=== PATIENT | male | born 1960 | race Caucasian/White ===

== ENCOUNTER 2018-04-14 08:05 | Inpatient (IN) | payer MEDICAID, OTHER ==
[~2018-04-14] VITALS: Ht 170.2 cm; Wt 72.7 kg
[~2018-04-14 08:05] MED LIST: CYCL-1 PO
[2018-04-14] MEDS ORDERED: amLODIPine 5mg tablet PO ONE (08:40)
[2018-04-14 08:47] LABS: BASOPHILS % (AUTO) 0.3 % (0-1); EOSINOPHILS # (AUTO) 0.3 X10'3 (0-0.9); EOSINOPHILS % (AUTO) 2.4 % (0-6); HEMATOCRIT 40.9 % (42.0-52.0); HEMOGLOBIN 13.3 g/dl (14.0-17.9); LYMPHOCYTES # (AUTO) 2.3 X10'3 (1.1-4.8); LYMPHOCYTES % (AUTO) 16.7 % (21-51); MEAN CORPUSCULAR HEMOGLOBIN 28.4 PG (27.0-31.0); MEAN CORPUSCULAR HGB CONC 32.5 % (33.0-36.5); MEAN CORPUSCULAR VOLUME 87.2 FL (78-98); MEAN PLATELET VOLUME 8.8 FL (7.4-10.4); MONOCYTES # (AUTO) 0.8 X10'3 (0-0.9); MONOCYTES % (AUTO) 5.6 % (2-12); NEUTROPHILS # (AUTO) 10.4 X10'3 (1.8-7.7); PLATELET COUNT 269 X10'3 (140-440); RED BLOOD COUNT 4.69 X10'6 (4.70-6.10); RED CELL DISTRIBUTION WIDTH 14.9 % (11.5-14.5); WHITE BLOOD COUNT 13.9 X10'3 (4.5-11.0)
[2018-04-14 08:57] LABS: INR 1.2 INR; PARTIAL THROMBOPLASTIN TIME 28 SECONDS (22-32); PROTHROMBIN TIME 12.5 SECONDS (9.0-12.0)
[2018-04-14 09:03] LABS: ALANINE AMINOTRANSFERASE 43 U/L (12-78); ALBUMIN 3.5 G/DL (3.4-5.0); ALKALINE PHOSPHATASE 232 IU/L (46-116); ANION GAP 11 (8-16); ASPARTATE AMINO TRANSFERASE 26 U/L (10-37); BILIRUBIN,TOTAL 1.3 MG/DL (0.1-1.0); BLOOD UREA NITROGEN 33 MG/DL (7-18); BUN/CREATININE RATIO 20.5 (5.4-32.0); CHLORIDE 103 MMOL/L (99-107); CREATININE 1.61 MG/DL (0.60-1.10); GLUCOSE 117 MG/DL (70-104); POTASSIUM 3.9 MMOL/L (3.5-5.1); SODIUM 139 MMOL/L (135-145); TOTAL CARBON DIOXIDE 25.3 MMOL/L (24-32); TOTAL PROTEIN 7.1 G/DL (6.4-8.2); eGFR 45 ML/MIN
[2018-04-14] MEDS ORDERED: AMLO10TA4 PO (10:14)
[2018-04-14] MEDS ORDERED: levoFLOXACIN 750MG TABLET PO ONE (10:20)
[2018-04-14] MEDS ORDERED: furosemide 10 MG/1 ML 10ml inj IV ONE (10:20)
[2018-04-14 10:41] LABS: CLARITY,URINE CLEAR (Clear); COLOR,URINE YELLOW (Yellow); GLUCOSE, URINE NEGATIVE (Neg); KETONES,URINE NEGATIVE (Neg); LEUKOCYTE ESTERASE ,URINE NEGATIVE (Neg); NITRITES, URINE NEGATIVE (Neg); OCCULT BLOOD,URINE TRACE-INTACT (Neg); PH,URINE 5.5 (4.8-8.0); PROTEIN,URINE 100 mg/dl (Neg); UROBILINOGEN,URINE 0.2 E.U/dL (0.2-1.0)
[2018-04-14 10:42] LABS: UA COLLECTION TYPE URINAL
[2018-04-14 10:52] LABS: URINE AMPHETAMINE SCREEN POSITIVE (Neg); URINE BARBITUATE SCREEN NEGATIVE (Neg); URINE BENZODIAZEPINES SCREEN NEGATIVE (Neg); URINE CANNABINOID SCREEN NEGATIVE (Neg); URINE COCAINE SCREEN NEGATIVE (Neg); URINE METHADONE SCREEN NEGATIVE (Neg); URINE OPIATE SCREEN NEGATIVE (Neg); URINE PHENCYCLIDINE SCREEN NEGATIVE (Neg)
[2018-04-14] MEDS ORDERED: ondansetron/PF 4mg/2ml inj IV PRN (10:55)
[2018-04-14] MEDS ORDERED: acetaminophen 325mg tablet PO PRN (10:55)
[2018-04-14] MEDS ORDERED: azithromycin/NS 500mg/250ml 250 ML IV SCH (10:55)
[2018-04-14] MEDS ORDERED: potassium Cl 20 mEq SR tablet PO PRN ×2 (10:55)
[2018-04-14] MEDS ORDERED: potassium Cl 40MEQ/NS 500ml 500 ML IV PRN ×2 (10:55)
[2018-04-14] MEDS ORDERED: magnesium hydroxide 30ml (MOM) UD suspension PO PRN (10:55)
[2018-04-14] MEDS ORDERED: magnesium 4gm in 100ml NS 100 ML IV PRN (10:55)
[2018-04-14] MEDS ORDERED: magnesium Cl slow-release 64mg tablet PO PRN (10:55)
[2018-04-14] MEDS ORDERED: CefTRIAXone/D5W-Rocephin 1gm 50 ML IV SCH (10:55)
[2018-04-14] MEDS ORDERED: mag hydrox/Alum hydrox/simeth 30ml oral suspension PO PRN (10:55)
[2018-04-14 11:02] LABS: BACTERIA,URINE FEW /HPF (Neg); FINE GRANULAR CAST 0-3 /LPF (NEGATIVE); HYALINE CASTS 0-3 /LPF (NEGATIVE); MUCUS STRANDS FEW /LPF (Neg); RBC,URINE 0-2 /HPF (0-2); SQUAMOUS EPITHELIAL CELL,UR FEW /LPF (FEW); WBC,URINE 0-4 /HPF (0-4)
[2018-04-14] MEDS: azithromycin/NS 500mg/250ml 250 ML IV SCH (11:56)
[2018-04-14] MEDS: lisinopril 5mg tablet PO SCH (11:56)
[2018-04-14] MEDS: furosemide 20 MG/2 ML vial IV SCH (13:10)
[2018-04-14] MEDS: CefTRIAXone/D5W-Rocephin 1gm 50 ML IV SCH (13:13)
[2018-04-14 18:30] VITALS: BP 171/117
[2018-04-14] MEDS: carVEDilol 12.5mg tablet PO SCH (19:41)
[2018-04-14] MEDS: heparin, porcine 5000 units/ml vial SQ SCH (19:42)
[2018-04-14 21:09] VITALS: BP_SYST 156; BP_SYST 173; BP_DIAS 104; BP_DIAS 114
[2018-04-14] MEDS ORDERED: hydrALAZINE 20mg/ml inj. IV PRN (21:40)
[2018-04-14 22:04] VITALS: BP 153/105
[2018-04-14 22:32] VITALS: BP 146/99
[2018-04-15 02:00] VITALS: BP 141/96
[2018-04-15 06:00] VITALS: BP 156/106
[2018-04-15 06:42] LABS: BASOPHILS # (AUTO) 0.1 X10'3 (0-0.2); BASOPHILS % (AUTO) 0.5 % (0-1); EOSINOPHILS # (AUTO) 0.2 X10'3 (0-0.9); EOSINOPHILS % (AUTO) 2.3 % (0-6); HEMOGLOBIN 12.2 g/dl (14.0-17.9); LYMPHOCYTES # (AUTO) 2.2 X10'3 (1.1-4.8); LYMPHOCYTES % (AUTO) 20.8 % (21-51); MEAN CORPUSCULAR HEMOGLOBIN 27.9 PG (27.0-31.0); MEAN CORPUSCULAR HGB CONC 32.1 % (33.0-36.5); MEAN PLATELET VOLUME 8.9 FL (7.4-10.4); MONOCYTES # (AUTO) 0.7 X10'3 (0-0.9); MONOCYTES % (AUTO) 6.3 % (2-12); NEUTROPHILS # (AUTO) 7.5 X10'3 (1.8-7.7); NEUTROPHILS % (AUTO) 70.1 % (42-75); PLATELET COUNT 234 X10'3 (140-440); RED BLOOD COUNT 4.37 X10'6 (4.70-6.10); WHITE BLOOD COUNT 10.6 X10'3 (4.5-11.0)
[2018-04-15 07:11] LABS: ALANINE AMINOTRANSFERASE 32 U/L (12-78); ALBUMIN/GLOBULIN RATIO 0.9 (1.1-1.5); ALKALINE PHOSPHATASE 192 IU/L (46-116); ANION GAP 11 (8-16); ASPARTATE AMINO TRANSFERASE 20 U/L (10-37); BILIRUBIN,TOTAL 1.3 MG/DL (0.1-1.0); BLOOD UREA NITROGEN 31 MG/DL (7-18); BUN/CREATININE RATIO 18.2 (5.4-32.0); CALCIUM 8.9 MG/DL (8.5-10.1); CHLORIDE 104 MMOL/L (99-107); CHOL/HDL RATIO 5.3 (0.00-4.99); CHOLESTEROL 126 MG/DL (0-200); GLUCOSE 106 MG/DL (70-104); HDL CHOLESTEROL 24 MG/DL (35-60); LDL CHOLESTEROL 95 MG/DL (50-100); MAGNESIUM 1.8 MG/DL (1.5-2.4); SODIUM 138 MMOL/L (135-145); TOTAL CARBON DIOXIDE 23.5 MMOL/L (24-32); TOTAL PROTEIN 6.2 G/DL (6.4-8.2); TRIGLYCERIDES 48 MG/DL (20-135); eGFR 42 ML/MIN
[2018-04-15] MEDS: carVEDilol 12.5mg tablet PO SCH (07:48)
[2018-04-15] MEDS: furosemide 20 MG/2 ML vial IV SCH (07:48)
[2018-04-15] MEDS: lisinopril 5mg tablet PO SCH (07:48)
[2018-04-15] MEDS: heparin, porcine 5000 units/ml vial SQ SCH (07:49)
[2018-04-15] MEDS: CefTRIAXone/D5W-Rocephin 1gm 50 ML IV SCH (07:50)
[2018-04-15] MEDS ORDERED: K and/or MAG REPLACEMENT MC SCH (08:00)
[2018-04-15] MEDS ORDERED: furosemide 20 MG/2 ML vial IV SCH (08:00)
[2018-04-15] MEDS: azithromycin/NS 500mg/250ml 250 ML IV SCH (09:10)
[2018-04-15 10:21] VITALS: BP 115/83
[2018-04-15 12:45] VITALS: BP 135/95
[2018-04-15] MEDS ORDERED: LISI-642 PO (14:43)
[2018-04-15] MEDS ORDERED: FURO-150 PO (14:43)
[2018-04-15] MEDS ORDERED: CARV-50 PO (14:43)
[2018-04-15] MEDS ORDERED: AZI25OT PO (15:12)
[2018-04-15 16:00] VITALS: BP 144/101
[2018-04-16] MEDS ORDERED: azithromycin 250mg tablet PO SCH (08:00)
== END 2018-04-15 16:50 | disposition home or self-care (01) | DRG 720 ==
LOC: ER 08:05 → ED HOLD 10:53 → PCU 3S 14:35
PROVIDERS: ADMIT Internal Medicine; ATTEND Internal Medicine
DX: A41.9 Sepsis, unspecified organism (principal); N17.9 Acute kidney failure, unspecified; J18.1 Lobar pneumonia, unspecified organism; I11.0 Hypertensive heart disease with heart failure; I50.9 Heart failure, unspecified; I08.1 Rheumatic disorders of both mitral and tricuspid valves; F17.200 Nicotine dependence, unspecified, uncomplicated; T46.5X6A Underdosing of other antihypertensive drugs, initial encounter; F15.10 Other stimulant abuse, uncomplicated; J44.0 Chronic obstructive pulmonary disease with (acute) lower respiratory infection; J98.11 Atelectasis; Z79.899 Other long term (current) drug therapy; Z71.51 Drug abuse counseling and surveillance of drug abuser; Z71.6 Tobacco abuse counseling; Y92.89 Other specified places as the place of occurrence of the external cause
CPT/HCPCS: 36415; 71045; 80053; 80061; 80305; 81001; 83605; 83735; 83880; 84484; 85025; 85610; 85730; 87040; 87070; 93005; 93306; 96374; 99285; G0378; J0360; J0456; J0696; J1644; J1940